=== PATIENT | male | born 1970 | race Caucasian/White ===

== ENCOUNTER → 2018-08-28 | Outpatient (CLI) | payer OTHER ==
[~2018-08-28] MED LIST: AMO500 PO; LOR5/325 PO; METH-280 PO; PRED20TA6 PO; TESTOSTERONE SHOT
--- NOTE | 2018-08-28 09:18 | RADIOLOGY IMAGING REPORT ---
FACILITY: [facility] PATIENT NAME: Doug Menjivar : 1970 MR: [id number] V: [id number] EXAM DATE: [id number] ORDERING PHYSICIAN: MAE ESTRADA TECHNOLOGIST: [place] [facility] [place] Menjivar : 1970 Visit/Account:[id number] Date of Sevice: 08/28/2018 Exam type: ORBITS FOREIGN BODY 1 VIEW History: Pre-MRI screening Comparison: None. Findings: No metallic radiopaque foreign bodies project over the orbits IMPRESSION: 1. No metallic radiopaque foreign bodies project over the orbits Report Dictated By: Dimple Schwartz MD at 08/28/2018 9:13 AM Report E-Signed By: Dimple Schwartz MD at 08/28/2018 9:15 AM WSN:[id number]
--- NOTE | 2018-08-28 10:31 | RADIOLOGY IMAGING REPORT ---
FACILITY: [facility] PATIENT NAME: Doug Menjivar : 1970 MR: [id number] V: [id number] EXAM DATE: ORDERING PHYSICIAN: MAE ESTRADA TECHNOLOGIST: Location: [facility] [place] Patient: Doug Menjivar : 1970 Visit/Account:[id number] Date of Sevice: 08/28/2018 KNEE RIGHT W/O CONTRAST COMPARISON: None. HISTORY: Right knee pain medial to the patella after injury. Worse with extension. Right knee effusi on. Assess for medial meniscus tear.. TECHNIQUE: Noncontrast multiplanar MRI of the right knee utilizing T1 weighted and fluid sensitive s equences. CONTRAST: None. FINDINGS: FLUID: Trace effusion. No Leija's cyst or hematoma. MENISCI: The menisci are intact. TENDONS/LIGAMENTS: The cruciate and medial collateral ligaments, lateral collateral ligamentous comp rowena, retinacula extensor mechanism are intact. The biceps and popliteus tendons are intact. MUSCLES: There is no muscle atrophy or edema. CARTILAGE: Partial-thickness fissure in the medial patellar facet articular cartilage with minimal s ubjacent subchondral edema. The distal femoral trochlear cartilage is intact. There is mild heterogen eous signal and irregularity of the medial femoral condyle articular cartilage along the lateral weig htbearing aspect of the medial compartment, without subjacent marrow signal abnormality. No significa nt lateral compartment cartilage loss. BONES: Normal marrow signal and alignment. OTHER: Negative. IMPRESSION: 1. Trace right knee effusion. 2. Intact menisci and ligaments. No fractures. 3. Mild partial-thickness cartilage loss lining the medial patella and medial femoral condyle. Report Dictated By: Jose Livingston at 08/28/2018 10:23 AM Report E-Signed By: Jose Livingston at 08/28/2018 10:27 AM WSN:[email or web address]
== END ==
LOC: MRI 00:45
PROVIDERS: ATTEND Orthopaedic Surgery
DX: M25.461 Effusion, right knee (principal); M24.10 Other articular cartilage disorders, unspecified site
CPT/HCPCS: 70030